=== PATIENT | female | born 1960 | race Caucasian/White ===

== ENCOUNTER 2019-11-13 15:54 | Emergency (ER) | payer OTHER, SELFPAY ==
--- NOTE | ~2019-11-13 | XR_ITS ---
XR shoulder LT min 2V 11/13/2019 17:05 INDICATION: Left shoulder pain after lifting injury PROCEDURE: 4 views left shoulder COMPARISON: No prior studies for comparison. FINDINGS: Fracture, dislocation or subluxation is not identified. The soft tissues appear within norm al limits. No foreign bodies are identified. IMPRESSION: 1: NO ACUTE BONE OR JOINT ABNORMALITY IDENTIFIED. Reviewed, dictated and finalized at location A. [facility] REPA[employer]ER
[2019-11-13 16:09] VITALS: BP 120/70; PULSE 59; RESP 16; TEMP 36.8; O2SAT 98
--- NOTE | 2019-11-13 16:37 | ED.GENADULT ---
HPI - General Adult General Chief complaint: Extremity Injury, Upper Stated complaint: left shoulder pain Time Seen by Provider: 11/13/19 16:37 Source: patient and RN notes reviewed Mode of arrival: ambulatory Limitations: no limitations History of Present Illness HPI narrative: This is a 59 years old female presented office for evaluation of shoulder pain for 2-1/2-week.Symptoms began shortly after 2 days of repetitive movement lifting landscape rocks into bucket for several hours. Denies numbness or tingling in her finger. She complain of clicking noise when she move her shoulder at times. She able to move her arm with some pain. Denies history of trauma or injury directly on her shoulder. She is right-hand dominant. She has been alternate Tylenol and ibuprofen for pain with minimal relief. Related Data Home Medications Medication Instructions Recorded Confirmed ergocalciferol (vitamin D2) 1,250 mcg PO WEEKLY 11/13/19 11/13/19 [Vitamin D2] gabapentin 300 mg PO DAILY 11/13/19 11/13/19 levothyroxine [Synthroid] 100 mcg PO DAILY 11/13/19 11/13/19 Allergies Allergy/AdvReac Type Severity Reaction Status Date / Time codeine Allergy Unknown Verified 11/13/19 16:23 meperidine Allergy Unknown Verified 11/13/19 16:23 morphine Allergy Unknown Verified 11/13/19 16:23 Sulfa (Sulfonamide Allergy Unknown Verified 11/13/19 16:23 Antibiotics) Review of Systems Review of Systems: Narrative: CONSTITUTIONAL: Denies fever or feeling ill ENT: Denies congestion or jaw pain CARDIOVASCULAR: Denies chest pain, palpitation RESPIRATORY: Denies dyspnea GASTROINTESTINAL: Denies abdominal pain, nausea, vomiting SKIN: Denies rash MUSCULOSKELETAL: Denies acute back pain. Reports left shoulder pain. NEUROLOGIC: Denies lightheaded PMFSH Family History Family History (Updated 04/22/16 @ 23:19 by DOCTOR UNKNOWN) Father Family history of diabetes mellitus in first degree relative Mother Family history of coronary artery disease Grandparent Diabetes mellitus Social History Social History Smoking status: Never smoker Second hand tobacco smoke exposure: No Alcohol intake: current Comments At time of signature, I agree with nursing past medical, surgical, social and family history. There is no relevant family history pertinent to the presenting complaint. Exam Narrative: Exam Narrative: GENERAL: This is a well-nourished, well-developed patient, in no apparent distress. CARDIOVASCULAR: Regular rate and rhythm without murmurs, gallops, or rubs. RESPIRATORY: Clear to auscultation. Breath sounds equal bilaterally. No wheezes, rales, or rhonchi. GASTROINTESTINAL: Abdomen soft, non-tender, nondistended. Bowel sounds are active. No hepato-splenomegaly, or palpable masses. No guarding. NEURO: awake, alert, and oriented to person, place and time. There were no obvious focal neurologic abnormalities. EXTREMITIES: The L shoulder is without obvious asymmetry or deformity when comparing to R shoulder. No surface trauma, ecchymosis, crepitus. No bony deformity of the humerus head. No erythema, warmth, swelling to palpate. Nontender to palpate over the clavicle, A to C joint, acromion, scapula, or humeral head. Nontender to palpations of the bicipital groove or soft tissue. Nontender to palpation of of the muscles of the sternocleidomastoid, pectoris, biceps/triceps, deltoid, trapezius, rhomboid, latissimus dorsi is, or rotator cuff. Shoulder with slight limited ROM secondary to pain. Negative empty can and arm drop test. No axillary tenderness or lymphadenopathy. Normal sensation over the deltoid and ability to flex the arm at the elbow indicated intact axillary nerve function. Distal motor is a normal vascular status is intact. Course Vital Signs Vital signs: Vital Signs Temperature 98.2 F 11/13/19 16:09 Pulse Rate 59 L 11/13/19 16:09 Respiratory Rate 16 11/13/19 16:09 Blood Pressure 120/70 11/13/19 16:09 Pulse Oxi
== END 2019-11-13 17:33 | disposition home or self-care (01) ==
PROVIDERS: Emergency Provider Nurse Practitioner; PCP Internal Medicine
DX: M25.512 Pain in left shoulder (principal); E03.9 Hypothyroidism, unspecified; Z96.643 Presence of artificial hip joint, bilateral
CPT/HCPCS: 73030; 99213; G0463

== ENCOUNTER 2022-11-05 09:35 | Emergency (ER) | payer OTHER, SELFPAY ==
[2022-11-05 09:43] VITALS: BP 122/66; PULSE 75; RESP 16; TEMP 36.6; O2SAT 100
--- NOTE | 2022-11-05 09:51 | ED.URI ---
HPI - URI/Sore Throat General Chief Complaint: Upper Respiratory Infection Stated Complaint: Sore Throat,Congestion Time Seen by Provider: 11/05/22 09:51 Source: patient Mode of arrival: ambulatory Limitations: no limitations History of Present Illness HPI Narrative: 62-year-old female presents with complaint of nasal congestion, sinus pressure, postnasal drainage, cough for the last 10 days. States she is coughing up green sputum. Is using Flonase intermittently but not daily. Is not taking any [id number] medications to treat her symptoms. Denies chest pain and shortness of breath. Afebrile. Reports that she has felt lousy the last 2-3 days. Thinks that she has a sinus infection. All systems reviewed and negative except as noted above. Related Data Allergies Allergy/AdvReac Type Severity Reaction Status Date / Time codeine AdvReac Intermediate Nausea and Verified 11/05/22 09:40 Vomiting meperidine AdvReac Intermediate nausea Verified 11/05/22 09:40 morphine AdvReac Intermediate nausea Verified 11/05/22 09:40 Sulfa (Sulfonamide AdvReac Mild acne Verified 11/05/22 09:40 Antibiotics) Review of Systems Review of Systems: CONSTITUTIONAL: Denies fever, chills, or sweats. EYES: Denies visual changes, redness, or discharge. ENT: Reports rhinorrhea, congestion, sore throat, or otalgia. CARDIOVASCULAR: Denies chest pain, palpitations, or edema. RESPIRATORY: reports cough. Denies dyspnea. GASTROINTESTINAL: Denies abdominal pain, nausea, vomiting, or diarrhea. GENITOURINARY: Denies dysuria or hematuria. SKIN: Denies rash or itching. MUSCULOSKELETAL: Denies back pain, joint pain, or myalgia. NEUROLOGIC: Denies headache, numbness, or weakness. PSYCHIATRIC: Denies anxiety or depression. All other systems reviewed are negative, except as documented in HPI. [facility] Family History Family History (Updated 04/22/16 @ 23:19 by DOCTOR UNKNOWN) Father Family history of diabetes mellitus in first degree relative Mother Family history of coronary artery disease Grandparent Diabetes mellitus Social History Social History Smoking status: Never smoker Second hand tobacco smoke exposure: No Alcohol intake: current Comments At time of signature, agree with nursing past medical, surgical, social and family history. There is no relevant family history pertinent to the presenting complaint. Exam Narrative: GENERAL: This is a well-nourished, well-developed patient, in no apparent distress. HEAD: normocephalic, atraumatic. EYES: PERRL. Sclera clear/white. Vision is grossly intact. EARS: External ears normal, auditory canals clear and without drainage, fluid bilateral TMs, dull light reflex. No erythema or perforation. NOSE: External nose normal with Clear nasal drainage, erythema to both nares. Ethmoid sinus tenderness. THROAT: Mucous membranes moist, Mild erythema with postnasal drainage. NECK: Neck supple, non-tender without lymphadenopathy, masses or thyromegaly. CARDIOVASCULAR: Regular rate and rhythm without murmurs, gallops, or rubs. RESPIRATORY: Clear to auscultation. Breath sounds equal bilaterally. No wheezes, rales, or rhonchi. SKIN: warm, Dry, intact with no suspicious lesions or rash, good texture and turgor. NEURO: awake, alert, and oriented to person, place and time. There were no obvious focal neurologic abnormalities. EXTREMITIES: No joint tenderness, effusion, or edema noted. Course Course Level of Care: Express Care Visit Vital Signs Vital signs: Vital Signs Temperature 36.6 C 11/05/22 09:43 Pulse Rate 75 11/05/22 09:43 Respiratory Rate 16 11/05/22 09:43 Blood Pressure 122/66 11/05/22 09:43 Pulse Oximetry 100 11/05/22 09:43 Oxygen Delivery Room Air 11/05/22 09:43 Temperature 36.6 C 11/05/22 09:43 Pulse Rate 75 11/05/22 09:43 Respiratory Rate 16 11/05/22 09:43 Blood Pressure 122/66 11/05/22 09:43 Pulse Oximetry 100 11/05/22 09:43 Ox
== END 2022-11-05 10:06 | disposition home or self-care (01) ==
PROVIDERS: Emergency Provider Nurse Practitioner Family; PCP Family Medicine
DX: J02.0 Streptococcal pharyngitis (principal); E03.9 Hypothyroidism, unspecified; Z96.643 Presence of artificial hip joint, bilateral; Z86.16 Personal history of COVID-19
CPT/HCPCS: 99213; G0463